=== PATIENT | female | born 1985 | race Caucasian/White ===

== ENCOUNTER 2017-01-30 16:05 | Emergency (ER) | payer SELFPAY ==
[~2017-01-30] VITALS: Ht 167.6 cm; Wt 78.3 kg
[2017-01-30 16:14] VITALS: BP 126/82
[2017-01-30] MEDS ORDERED: FLUORESCEIN OPHTHALMIC 1 MG STRIP EACHEYE ONE (16:30)
[2017-01-30] MEDS ORDERED: PROPARACAINE OPHTH 0.5%, 15ML EACHEYE ONE (16:30)
== END 2017-01-30 21:17 | disposition left against medical advice (07) ==
LOC: ED 17:54
DX: H57.11 Ocular pain, right eye (principal)
CPT/HCPCS: 99283

== ENCOUNTER 2017-06-25 13:26 | Emergency (ER) | payer MEDICAID ==
[~2017-06-25] VITALS: Ht 152.4 cm; Wt 81.4 kg
[2017-06-25] MEDS ORDERED: KETOROLAC 30 MG/1 ML ONE (15:29)
[2017-06-25] MEDS ORDERED: KETOROLAC 30 MG/1 ML IM ONE (15:30)
[2017-06-25 16:10] VITALS: BP 115/76
== END 2017-06-25 16:12 | disposition home or self-care (01) ==
LOC: ED 15:55
DX: K02.9 Dental caries, unspecified (principal); F17.210 Nicotine dependence, cigarettes, uncomplicated; F15.10 Other stimulant abuse, uncomplicated
CPT/HCPCS: 96372; 99283; J1885

== ENCOUNTER 2020-01-02 19:40 | Emergency (ER) | payer MEDICAID ==
--- NOTE | 2020-01-02 20:04 | NUR ---
TIA RN: NIL WHEN CALLED FOR TRIAGE
--- NOTE | 2020-01-02 20:27 | NUR ---
PEACE OFFICER: NIL WHEN CALLED FOR TRIAGE
--- NOTE | 2020-01-02 20:38 | NUR ---
UNABLE TO LOCATE PT IN LOBBY
== END 2020-01-02 21:05 | disposition left against medical advice (07) ==
LOC: ED 20:40
DX: R22.0 Localized swelling, mass and lump, head (principal); Z53.21 Procedure and treatment not carried out due to patient leaving prior to being seen by health care provider